=== PATIENT | male | born 1965 | race Caucasian/White ===

== ENCOUNTER 2021-11-01 08:49 | Day surgery (SDC) | payer OTHER ==
[~2021-11-01 08:49] MED LIST: Lactated Ringers 1,000 ML IV SCH; Lidocaine 2% 5 ML SDV ONE; Midazolam 1 MG/ML 2 ML SDV ONE; Propofol 200 MG/20 ML SDV ONE; fentaNYL 100 MCG/2 ML SDV ONE
== END 2021-11-01 11:42 | disposition home or self-care (01) ==
LOC: MW.SDS 08:49
PROVIDERS: ATTEND Surgery
DX: K29.70 Gastritis, unspecified, without bleeding (principal); K31.89 Other diseases of stomach and duodenum; I78.1 Nevus, non-neoplastic; E78.00 Pure hypercholesterolemia, unspecified; Z79.899 Other long term (current) drug therapy; Z98.890 Other specified postprocedural states
CPT/HCPCS: 00731; J2250; J2704; J3010; J7120

== ENCOUNTER 2021-12-20 09:08 | Day surgery (SDC) | payer OTHER ==
[~2021-12-20 09:08] MED LIST changes: +Acetaminophen 1,000 MG in Premix Bag 1 BAG IV SCH; +Albuterol 0.083% 2.5 MG/3 ML Neb Soln NEB PRN; +HYDROmorphone 1 MG/ML Syringe IVPUSH PRN; -Lidocaine 2% 5 ML SDV ONE; +Metoclopramide 10 MG/2 ML SDV IVPUSH PRN; -Midazolam 1 MG/ML 2 ML SDV ONE; +Morphine 4 MG/ML VIAL IVPUSH PRN; +Naloxone 0.4 MG/ML SDV IVPUSH PRN; +Ondansetron 4 MG/2 ML SDV IVPUSH PRN; +Pregabalin 75 MG Cap PO SCH; -Propofol 200 MG/20 ML SDV ONE; +cefOXitin 2 GM in Premix Bag 1 BAG IV SCH; +fentaNYL 100 MCG/2 ML SDV IVPUSH PRN; -fentaNYL 100 MCG/2 ML SDV ONE
[2021-12-20] MEDS ORDERED: Scopolamine 1.5 MG Transdermal Patch ONE (09:22)
[2021-12-20] MEDS ORDERED: Octyl 2-Cyanoacrylate 1 Tube ONE ×2 (10:18→13:02)
[2021-12-20] MEDS ORDERED: Bupivacaine 0.25% 30 ML SDV ONE (10:19)
[2021-12-20] MEDS ORDERED: Sugammadex Sodium 200 MG/2 ML VIAL ONE (10:26)
[2021-12-20] MEDS ORDERED: Rocuronium Bromide 50 MG/5 ML Syringe ONE ×2 (10:26→12:21)
[2021-12-20] MEDS ORDERED: Lidocaine 2% 5 ML SDV ONE (10:26)
[2021-12-20] MEDS ORDERED: Dexamethasone 4 MG/ML 5 ML MDV ONE (10:26)
[2021-12-20] MEDS ORDERED: Midazolam 1 MG/ML 2 ML SDV ONE (10:26)
[2021-12-20] MEDS ORDERED: Propofol 200 MG/20 ML SDV ONE ×2 (10:26→12:59)
[2021-12-20] MEDS ORDERED: Ondansetron 4 MG/2 ML SDV ONE (10:26)
[2021-12-20] MEDS ORDERED: fentaNYL 250 MCG/5 ML SDV ONE (10:26)
[2021-12-20] MEDS ORDERED: cefOXitin 100 ML ONE (11:02)
[2021-12-20] MEDS ORDERED: Ketorolac 30 MG/ML SDV ONE (12:53)
== END 2021-12-20 15:32 | disposition home or self-care (01) ==
LOC: MW.SDS 09:08
PROVIDERS: ATTEND Surgery
DX: K81.2 Acute cholecystitis with chronic cholecystitis (principal); D36.0 Benign neoplasm of lymph nodes; E78.00 Pure hypercholesterolemia, unspecified; K21.9 Gastro-esophageal reflux disease without esophagitis; Z79.899 Other long term (current) drug therapy; Z98.890 Other specified postprocedural states
CPT/HCPCS: 00790; A9270-GY; J0131; J0694; J1100; J1885; J2250; J2370; J2405; J2704; J3010; J3490; J7120